=== PATIENT | male | born 1980 | race Caucasian/White ===

== ENCOUNTER 2020-11-09 21:43 | Emergency (ER) | payer OTHER ==
[~2020-11-09] VITALS: Ht 182.9 cm; Wt 112.5 kg
[2020-11-09] MEDS ORDERED: INHALER (22:00)
[2020-11-09] MEDS ORDERED: HYDROCODON-ACE1 EAC7 PO (22:00)
[2020-11-09] MEDS ORDERED: FLEXERIL PO (22:00)
[2020-11-09] MEDS ORDERED: KEFLEX500 M1 PO (23:01)
[2020-11-09 23:14] VITALS: BP 148/80
== END 2020-11-09 23:16 | disposition home or self-care (01) ==
LOC: M.ERS 21:43
DX: L03.115 Cellulitis of right lower limb (principal); J45.909 Unspecified asthma, uncomplicated